=== PATIENT | female | born 1995 | race Asian ===

== ENCOUNTER 2021-07-27 18:02 | Emergency (ER) | payer BC, SELFPAY ==
[2021-07-27 18:12] VITALS: BP 144/69; PULSE 79; RESP 16; TEMP 37.1; O2SAT 100
--- NOTE | 2021-07-27 18:22 | ED.FEMALEGU ---
HPI - Female Genitourinary General Chief complaint: Urogenital-Female Stated complaint: Urinary Problem Time Seen by Provider: 07/27/21 18:22 Source: patient History of Present Illness HPI Narrative: patient presents with burning with urination. no concern for std. no back, flank abdomen or pelvic pain. no gross hematuria. MD elicited complaint: dysuria and UTI Related Data Home Medications Medication Instructions Recorded Confirmed albuterol sulfate 1 inh INHALATION DIRECTED 07/27/21 07/27/21 bupropion HCl 150 mg PO DAILY 07/27/21 07/27/21 buspirone 5 mg PO TID 07/27/21 07/27/21 citalopram 40 mg PO DAILY 07/27/21 07/27/21 fexofenadine [Adali Allergy] 180 mg PO DAILY 07/27/21 07/27/21 fluticasone furoate-vilanterol 1 inh INHALATION DAILY 07/27/21 07/27/21 [Breo Ellipta] norethindrone (contraceptive) 0.35 mg PO DAILY 07/27/21 07/27/21 sumatriptan succinate 50 mg PO DIRECTED 07/27/21 07/27/21 Allergies Allergy/AdvReac Type Severity Reaction Status Date / Time latex Allergy Unknown Unknown Verified 07/27/21 18:29 Review of Systems Review of Systems: CONSTITUTIONAL: Denies fever, chills, or sweats. EYES: Denies visual changes, redness, or discharge. ENT: Denies rhinorrhea, congestion, sore throat, or otalgia. CARDIOVASCULAR: Denies chest pain, palpitations, or edema. RESPIRATORY: Denies cough or dyspnea. GASTROINTESTINAL: Denies abdominal pain, nausea, vomiting, or diarrhea. GENITOURINARY: Denies dysuria or hematuria. SKIN: Denies rash or itching. MUSCULOSKELETAL: Denies back pain, joint pain, or myalgia. NEUROLOGIC: Denies headache, numbness, or weakness. PSYCHIATRIC: Denies anxiety or depression. PMFSH Comments At time of signature, agree with nursing past medical, surgical, social and family history. There is no relevant family history pertinent to the presenting complaint Exam Narrative: GENERAL: Well-appearing, well-nourished, and in no acute distress. HEAD: Normocephalic, atraumatic. EYES: PERRLA and EOMI. ENT: Nares clear, no rhinorrhea or epistaxis. Mucous membranes moist. NECK: Supple. CHEST: Clear to auscultation. No respiratory distress. HEART: Regular rate and rhythm. No murmur heard. Normal peripheral pulses. ABDOMEN: Soft, nontender, nondistended, normal active bowel sounds. EXTREMITIES: Normal range of motion. No edema. SKIN: Warm, dry, no rash. NEURO: No focal deficits. Alert and oriented x3. Harrison Coma Scale Eye Opening: Spontaneous 4 Harrison Coma Scale Motor: Obeys Commands 6 Harrison Coma Scale Verbal: Oriented 5 Harrison Coma Scale Total 15 Course Vital Signs Vital signs: Vital Signs Temperature 37.1 C 07/27/21 18:12 Pulse Rate 79 07/27/21 18:12 Respiratory Rate 16 07/27/21 18:12 Blood Pressure 144/69 H 07/27/21 18:12 Pulse Oximetry 100 07/27/21 18:12 Temperature 37.1 C 07/27/21 18:12 Pulse Rate 79 07/27/21 18:12 Respiratory Rate 16 07/27/21 18:12 Blood Pressure 144/69 H 07/27/21 18:12 Pulse Oximetry 100 07/27/21 18:12 Addressed elevated BP today. Today's blood pressure higher than recommended range. Discussed importance of follow -up with PCP and possible rn long term care effects/cardiovascular events related to HTN. Currently patient denies headache, dizziness, vision changes, CP or shortness of breath. MDM - Female Genitourinary Differential Diagnosis Differential diagnosis: Likely urinary tract infection, bacterial vaginosis, trichomoniasis, cervicitis, ovarian cyst, vaginitis, ruptured ovarian cyst, cyst of Bartholin's gland, cystitis, dysmenorrhea and other Critical Care Time Critical Care Time Critical Care Time: No Discharge Plan Discharge Clinical Impression: Dysuria, Urinary tract infection Patient Disposition: Home, Self-Care Condition: Stable Instructions: Antibiotic Form, Urinary Tract Infection in Women (DC) Additional Instructions: Increase fluids especially cranberry juice and water Avoid caffeine and car
== END 2021-07-27 18:42 | disposition home or self-care (01) ==
PROVIDERS: Emergency Provider Nurse Practitioner Family; PCP Nurse Practitioner Family
DX: N39.0 Urinary tract infection, site not specified (principal); J45.909 Unspecified asthma, uncomplicated; Z87.891 Personal history of nicotine dependence; F32.9 Major depressive disorder, single episode, unspecified
CPT/HCPCS: 81003; 87077; 87086; 87088; 87186; 99213; G0463

== ENCOUNTER 2024-03-04 16:44 | Emergency (ER) | payer OTHER, SELFPAY ==
[2024-03-04 16:53] VITALS: BP 113/74; PULSE 76; RESP 14; TEMP 36.6; O2SAT 100
--- NOTE | 2024-03-04 17:05 | ED.URI ---
HPI - URI/Sore Throat General Chief Complaint: Upper Respiratory Infection Stated Complaint: poss sinus infection Time Seen by Provider: 03/04/24 17:05 Source: patient, RN notes reviewed and old records reviewed Mode of arrival: ambulatory Limitations: no limitations History of Present Illness HPI Narrative: 28-year-old female to [facility] for complaint of sinus pressure, sore throat and ears feeling muffled for 4 days. Patient has attempted to treat at home with Sudafed with no relief. Patient endorses history of chronic ear infections childhood. Patient currently rating ear pain 2/10. Patient endorses taking ibuprofen earlier today to treat her discomfort. Patient denies cough, shortness of breath, chest pain. respirations even and nonlabored. Patient able to speak in full sentences without difficulty. Patient able to tolerate fluids by mouth. Patient in no acute distress. Related Data Home Medications Medication Instructions Recorded Confirmed albuterol sulfate 90 mcg/actuation 1 inh inhalation DIRECTED 07/27/21 11/16/23 aerosol inhaler bupropion HCl 150 mg 24 hr tablet, 150 mg PO DAILY 07/27/21 11/16/23 extended release citalopram 40 mg tablet 40 mg PO DAILY 07/27/21 11/16/23 fexofenadine 180 mg tablet 180 mg PO DAILY 07/27/21 11/16/23 (Adali Allergy) fluticasone furoate 100 1 inh inhalation DAILY 07/27/21 11/16/23 mcg-vilanterol 25 mcg/dose inhalation powder (Breo Ellipta) norethindrone (contraceptive) 0.35 0.35 mg PO DAILY 07/27/21 11/16/23 mg tablet sumatriptan succinate 50 mg tablet 50 mg PO DIRECTED 07/27/21 11/16/23 Buspirone BYMOUTH 11/16/23 11/16/23 Trelegy Ellipta .Route 11/16/23 11/16/23 cariprazine 1.5 mg capsule 1.5 mg PO DAILY 11/16/23 11/16/23 (Vraylar) Allergies Allergy/AdvReac Type Severity Reaction Status Date / Time latex Allergy Unknown Unknown Verified 11/16/23 10:06 Apples Allergy Severe Hives Uncoded 11/16/23 10:06 Review of Systems Review of Systems: All systems reviewed & are unremarkable except as noted in HPI and below Constitutional: Constitutional: Reports no additional constitutional complaints Eyes: Eyes: Reports no additional eye complaints ENT: Reports as per HPI, Reports otalgia ( Bilateral), Reports sinus pain, Reports sinus pressure and Reports sore throat Cardiovascular: Cardiovascular: Reports no additional cardiovascular complaints, Denies chest pain and Denies dyspnea Respiratory: Respiratory: Reports no additional respiratory complaints, Denies cough and Denies dyspnea Musculoskeletal: Musculoskeletal: Reports no additional musculoskeletal complaints Neurologic: Reports system reviewed and no additional complaints, except as documented Psychiatric: Psychiatric: Reports no additional psychiatric complaints PMFSH Past Medical History Medical History Allergies Arthritis Asthenia Depression Headache IBS (irritable bowel syndrome) Migraine Family History Family History Father Hypertension Diabetes mellitus Depression Mother Asthma Depression Sibling Hypertension Depression Grandparent Asthma Diabetes mellitus Heart disease EtOH dependence Social History Social History Smoking status: Never smoker Alcohol intake: current Alcohol use details: Beer Occasional Substance use: never Lack of Transportation: No Lack of Food: Never True Current Housing: I Have Housing Concerned About Future Housing: No Difficulty Paying Gas/Electric Bills: No Difficulty Paying for Meds: No Currently Unemployed: No Education: Master's Degree or Higher Additional occupation/education comments: [employer] Gender identity (if verbalized by the patient): Female Comments At the time of my signature, I reviewed and agree w
== END 2024-03-04 17:25 | disposition home or self-care (01) ==
PROVIDERS: Emergency Provider Nurse Practitioner Family; PCP Nurse Practitioner Adult Health
DX: H66.92 Otitis media, unspecified, left ear (principal); M19.90 Unspecified osteoarthritis, unspecified site; F32.A Depression, unspecified
CPT/HCPCS: 99213; G0463

== ENCOUNTER 2025-07-14 14:05 | Outpatient (NON) | payer OTHER, SELFPAY | END 2025-07-14 14:06 | disposition home or self-care (01) | LOC: ANHGOSHLAB 14:06 | PROVIDERS: PCP Nurse Practitioner Adult Health; Visit Provider Otolaryngology | DX: J32.9 Chronic sinusitis, unspecified (principal) | CPT/HCPCS: 87070; 87075; 87205 ==